=== PATIENT | male | born 1980 ===

== ENCOUNTER 2019-03-01 10:35 | Emergency (ER) | payer OTHER ==
[2019-03-01 10:55] VITALS: RESP 18; TEMP 98.7
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
[2019-03-01 12:43] VITALS: BP 134/82; PULSE 72
[2019-03-01 13:04] VITALS: O2SAT 100
== END 2019-03-01 12:43 | disposition home or self-care (01) ==
LOC: C.ER 10:35
DX: S33.5XXA Sprain of ligaments of lumbar spine, initial encounter (principal); V49.9XXA Car occupant (driver) (passenger) injured in unspecified traffic accident, initial encounter
CPT/HCPCS: 72114; 96372; 99284; J1885